=== PATIENT | female | born 2000 | race Caucasian/White ===

== ENCOUNTER → 2020-10-31 | Outpatient (CLI) | payer OTHER ==
[~2020-10-31] MED LIST: GOLYTELY SOLU4000 ML PO; PREDNISONE5 MG PO; VENTOLIN HFA 66.7 GM INH; ZOFRAN4 MG PO
[2020-10-31 15:16] LABS: HEMOGLOBIN 13.3 gm/dl (12.3-15.3); RED BLOOD COUNT 4.36 M/UL (4.00-5.10); WHITE BLOOD COUNT 8.4 K/UL (4.5-11.0)
[2020-10-31 15:33] LABS: BUN/CREATININE RATIO 17 (0-10)
== END ==
LOC: LAB 14:36
PROVIDERS: Colon & Rectal Surgery
DX: Z01.818 Encounter for other preprocedural examination (principal); Z20.822 Contact with and (suspected) exposure to COVID-19; I49.8 Other specified cardiac arrhythmias
CPT/HCPCS: 80053; 85025; 93005; U0002